=== PATIENT | male | born 1985 | race Two or more races ===

== ENCOUNTER 2021-09-28 19:05 | Emergency (ER) | payer MEDICAID ==
[~2021-09-28] VITALS: Ht 172.7 cm; Wt 90.0 kg
[2021-09-28 20:01] VITALS: BP 162/93
[2021-09-28] MEDS ORDERED: ACETAMINOPHEN 325MG TABLET PO STA (20:20)
[2021-09-28 20:48] LABS: BASOPHILS % 0.5 % (0.0-2.0); EOSINOPHILS % 5.8 % (0.0-5.0); HEMATOCRIT. 44.5 % (42.0-52.0); HEMOGLOBIN. 15.5 g/dL (14.0-18.0); LYMPHOCYTES % 16.4 % (20.0-50.0); MEAN CORPUSCULAR HEMOGLOBIN 32.4 pg (28.0-32.0); MEAN CORPUSCULAR VOLUME 93.2 fL (80.0-94.0); MEAN PLATELET VOLUME 8.1 fl (7.4-10.4); MONOCYTES % 7.6 % (2.0-8.0); NEUTROPHILS % 69.7 % (40.0-76.0); PLATELET 270 x1000/uL (130-400); RED BLOOD CELL COUNT 4.77 mill/uL (4.7-6.1); RED CELL DISTRIBUTION WIDTH 13.5 % (11.6-14.6)
[2021-09-28 20:51] LABS: CLARITY URINE CLEAR (CLEAR); COLOR URINE DARK YELLOW (YELLOW); KETONES URINE TRACE (NEGATIVE); LEUKOCYTE ESTERASE URINE NEGATIVE (NEGATIVE); NITRITE URINE NEGATIVE (NEGATIVE); OCCULT BLOOD URINE NEGATIVE (NEGATIVE); PH URINE 5.5 (4.5-8.0); PROTEIN URINE NEGATIVE (NEGATIVE); SPECIFIC GRAVITY URINE 1.031 (1.005-1.030)
[2021-09-28 20:57] LABS: CHLORIDE 109 mEq/L (98-107)
[2021-09-28 21:03] LABS: ETHANOL BLOOD < 10 mg/dL
[2021-09-28 21:26] LABS: *AMPHETAMINES SCREEN URINE PRESUMTIVE POSITIVE (NEGATIVE); *BARBITURATES SCREEN URINE NEGATIVE (NEGATIVE); *BENZODIAZEPINES SCREEN URINE NEGATIVE (NEGATIVE)
[2021-09-28 21:27] LABS: *COCAINE SCREEN URINE NEGATIVE (NEGATIVE); CANNABINOID URINE SCREEN NEGATIVE (NEGATIVE); METHADONE URINE SCREEN NEGATIVE (NEGATIVE); OPIATES URINE SCREEN NEGATIVE (NEGATIVE); PHENCYCLIDINE URINE SCREEN NEGATIVE (NEGATIVE)
== END 2021-09-28 19:54 | disposition left against medical advice (07) ==
LOC: ER 19:05
DX: R06.00 Dyspnea, unspecified (principal); M25.475 Effusion, left foot; M25.474 Effusion, right foot; R07.9 Chest pain, unspecified; R03.0 Elevated blood-pressure reading, without diagnosis of hypertension; F17.210 Nicotine dependence, cigarettes, uncomplicated
CPT/HCPCS: 36415; 71045; 80053; 80305; 80320; 81003; 83880; 84484; 85025; 85651; 86140; 93970; 99285; G0480

== ENCOUNTER 2021-09-29 11:13 | Emergency (ER) | payer MEDICAID | END 2021-09-29 11:59 | disposition left against medical advice (07) | LOC: ER 11:13 | DX: Z53.21 Procedure and treatment not carried out due to patient leaving prior to being seen by health care provider (principal) ==